=== PATIENT | female | born 1995 | race Caucasian/White ===

== ENCOUNTER 2018-03-16 09:11 | Emergency (ER) | payer OTHER ==
[2018-03-16 09:31] VITALS: BP 104/60; PULSE 70; TEMP 97.8; BMI 24.5
--- NOTE | 2018-03-16 10:18 | PDOC ---
History of Present Illness - General Chief Complaint: Eye Problem Stated Complaint: EYE IRRITATION/REDNESS Time Seen by Provider: 03/16/18 09:31 History Source: Patient Exam Limitations: No Limitations - History of Present Illness Initial Comments: 03/16/18 10:13 CHIEF COMPLAINT: Bilateral eye drainage and pruritus with redness HISTORY OF PRESENT ILLNESS: Patient is a 22-year-old female, no significant medical history currently on no medication presents for bilateral eye drainage, redness with pruritus. Patient reports 2 days ago she was working with plant cutting them down, noticed I started, itchy and was driving her eyes, progressively worsened over the next couple of days. REVIEW OF SYSTEMS: GENERAL/CONSTITUTIONAL: No fever or chills. No weakness. No weight change. HEAD, EYES, EARS, NOSE AND THROAT: No change in vision. Drainage and pruritus to bilateral eye. No ear pain or discharge. No sore throat. RESPIRATORY: No cough, wheezing, or hemoptysis. SKIN : No rash or easy bruising. NEUROLOGIC: No headache, vertigo, loss of consciousness, or loss of sensation. HEMATOLOGIC/LYMPHATIC: No lymphadenopathy ALLERGIC/IMMUNOLOGIC: No hives or skin allergy. No latex allergy. PHYSICAL EXAM: GENERAL: The patient is awake, alert, and fully oriented, in no acute distress. HEAD: Normal with no signs of trauma. EYES: Pupils equal, round and reactive to light, extraocular movements intact, sclera anicteric, conjunctiva injected, extending to limbus after fluorescein staining, no corneal abrasion noted. ENT: Ears normal, nares patent, oropharynx clear without exudates. Moist mucous membranes. NECK: Normal range of motion, supple without lymphadenopathy, JVD, or masses. LUNGS: Breath sounds equal, clear to auscultation bilaterally. No wheezes, and no crackles. NEUROLOGICAL: Cranial nerves II through XII grossly intact. Normal speech, normal gait. SKIN: No erythema no facial edema. Warm, Dry, normal turgor, no rashes or lesions noted. Past History - Past Medical History Allergies/Adverse Reactions: Allergies Allergy/AdvReac Type Severity Reaction Status Date / Time No Known Allergies Allergy Verified 03/16/18 09:28 Home Medications: Ambulatory Orders Loratadine [Claritin -] 10 mg PO DAILY #30 tablet 03/16/18 Moxifloxacin HCl [Vigamox 0.5% Eye Drops -] 1 drop OU TID #1 bottle 03/16/18 COPD: No DVT: No Dementia: No - Immunization History Immunization Up to Date: Yes - Suicide/Smoking/Psychosocial Hx Smoking History: Never smoked Have you smoked in the past 12 months: No Information on smoking cessation initiated: No Hx Alcohol Use: No Drug/Substance Use Hx: No Substance Use Type: None *Physical Exam - Vital Signs Last Vital Signs Temp Pulse Resp BP Pulse Ox 97.8 F 70 16 104/60 98 03/16/18 09:29 03/16/18 09:29 03/16/18 09:29 03/16/18 09:29 03/16/18 09:29 Medical Decision Making - Medical Decision Making 03/16/18 10:14 A/P: Patient with bilateral conjunctivitis will DC on the Vigamox, due to working around organic matter. Will start also on Claritin, I have advised patient to use allergy drops when working around plants. Follow up with ophthalmology in 2 days if symptoms persist *DC/Admit/Observation/Transfer Diagnosis at time of Disposition: Conjunctivitis Qualifiers: Conjunctivitis type: other Laterality: bilateral Qualified Code(s): H10.89 - Other conjunctivitis - Discharge Dispostion Disposition: HOME Condition at time of disposition: Stable Admit: No - Prescriptions Prescriptions: Loratadine [Claritin -] 10 mg PO DAILY #30 tablet Moxifloxacin HCl [Vigamox 0.5% Eye Drops -] 1 drop OU TID #1 bottle - Referrals - Patient Instructions Printed Discharge Instructions: Conjunctivitis Additional Instructions: * Refrain from touching or scratching eye * Please wash hands frequently * Please followup with his primary care doctor in 2 days if symptoms persist * Medication as prescribed * Warm compresses to eye * If increased redness, swelling, pain to the eye please follow up with primary care doctor immediately or return to emergency room - Post Discharge Activity Forms/Work/School Notes: Back to Work
== END 2018-03-16 10:22 | disposition home or self-care (01) ==
LOC: JERFT 09:11
DX: H10.89 Other conjunctivitis (principal)
CPT/HCPCS: 99281-25

== ENCOUNTER 2022-02-19 20:15 | Emergency (ER) | payer OTHER ==
[2022-02-19 20:22] VITALS: BP 128/84; PULSE 61; TEMP 97.8; BMI 27.0
[2022-02-19] MEDS ORDERED: morphine CARPU-JECT 4 MG/1 ML DISP.SYRIN IVPUSH ONE (21:40)
[2022-02-19] MEDS ORDERED: SODIUM CHLORIDE 1,000 ML IV STA (21:40)
[2022-02-19] MEDS ORDERED: MAG HYDROX/AL HYDROX/SIMETH 30 ML UNIT-DOSE CUP PO ONE (21:43)
[2022-02-19] MEDS ORDERED: MAG HYDROX/AL HYDROX/SIMETH 30 ML UNIT-DOSE CUP ONE (22:09)
[2022-02-19] MEDS ORDERED: morphine SULFATE 4 MG/ML VIAL ONE (22:09)
[2022-02-19 22:31] LABS: BASO % 0.3 % (0-2.0); EOS % 0.6 % (0-4.5); HEMATOCRIT 39.4 % (32.4-45.2); HEMOGLOBIN 13.4 GM/dL (10.7-15.3); MCH 30.2 pg (25.7-33.7); MCHC 33.9 g/dl (32.0-36.0); MEAN CELL VOLUME 89.1 fl (80-96); MEAN PLT VOLUME 7.7 fl (7.5-11.1); MONO % 4.1 % (3.8-10.2); PLATELET COUNT 356 10^3/uL (134-434); RBC 4.42 M/mm3 (3.60-5.2); RDW 12.8 % (11.6-15.6)
[2022-02-19 22:39] LABS: INR 1.1 (0.83-1.09); PROTHROMBIN TIME (PATIENT) 12.7 SEC (9.7-13.0)
[2022-02-19 22:42] LABS: ACTIVATED PTT 28.7 SECONDS (25.2-36.5)
[2022-02-19 22:54] LABS: BLOOD UREA NITROGEN 15.4 mg/dL (7-18)
[2022-02-19 22:55] LABS: MAGNESIUM 2.4 mg/dL (1.8-2.4)
[2022-02-19 22:57] LABS: CREATININE 0.7 mg/dL (0.55-1.3)
[2022-02-19 22:59] LABS: BILIRUBIN,TOTAL 0.6 mg/dL (0.2-1); TOT PROT 7.3 g/dl (6.4-8.2)
[2022-02-20 01:53] LABS: EPI CELLS >36 /uL (0-25.1); HYALINE CASTS 43 /uL (0-3.1); PH,URINE >= 9.0 (5.0-8.0); URINE APPEARANCE CLEAR; URINE BACTERIA 4832 /uL (0-1359); URINE BILIRUBIN NEGATIVE (NEGATIVE); URINE COLOR YELLOW; URINE GLUCOSE (UA) NEGATIVE (NEGATIVE); URINE KETONE NEGATIVE (NEGATIVE); URINE LEUK ESTERASE NEGATIVE (NEGATIVE); URINE NITRITE NEGATIVE (NEGATIVE); URINE PROTEIN 1+ (NEGATIVE); URINE RBC 5 /uL (0-23.9)
[2022-02-20 04:41] LABS: URINE WBC 150.2 /uL (0-25.8)
== END 2022-02-20 04:01 | disposition home or self-care (01) ==
LOC: JER 20:15
PROC: 3E033GC Introduction of Other Therapeutic Substance into Peripheral Vein, Percutaneous Approach (ICD-10-PCS; principal; 2022-02-19)
DX: R07.9 Chest pain, unspecified (principal)
CPT/HCPCS: 36415; 71275-TC; 76705-TC; 80053; 81003; 83690; 83735; 84484; 84703; 85025; 85610; 85730; 93005; 93010; 99285-25